=== PATIENT | male | born 1935 | race Caucasian/White ===

== ENCOUNTER 2022-07-17 05:55 | Day surgery (SDC) | payer MEDICARE, BC ==
[2022-07-13 14:39] VITALS: BMI 25.7
[2022-07-17] MEDS ORDERED: Indomethacin 50 MG SUPP ONE (07:30)
[2022-07-17] MEDS ORDERED: Iopamidol 30 ML ONE (07:31)
[2022-07-17] MEDS ORDERED: SUGAMMADEX SODIUM 200 MG/2 ML VIAL ONE (07:42)
[2022-07-17] MEDS ORDERED: fentaNYL PF 100 MCG/2 ML SYRINGE ONE (07:42)
[2022-07-17] MEDS ORDERED: PROPOFOL 200 MG/20 ML VIAL ONE (07:47)
[2022-07-17] MEDS ORDERED: Rocuronium Bromide 10 MG/ML (10ML VIAL) ONE (07:47)
[2022-07-17] MEDS ORDERED: Ondansetron PF 4 MG/2 ML Vial ONE (07:47)
[2022-07-17] MEDS ORDERED: Lidocaine 1% PF 5 ML VIAL ONE (07:47)
== END 2022-07-17 09:45 | disposition home or self-care (01) ==
LOC: SDC 05:55
PROVIDERS: ATTEND Internal Medicine Gastroenterology
PROC: 0FPB8DZ Removal of Intraluminal Device from Hepatobiliary Duct, Via Natural or Artificial Opening Endoscopic (ICD-10-PCS; principal; 2022-07-17)
DX: Z46.59 Encounter for fitting and adjustment of other gastrointestinal appliance and device (principal); I25.10 Atherosclerotic heart disease of native coronary artery without angina pectoris; K21.9 Gastro-esophageal reflux disease without esophagitis; K59.00 Constipation, unspecified; E78.5 Hyperlipidemia, unspecified; Z87.891 Personal history of nicotine dependence; Z79.82 Long term (current) use of aspirin; Z79.899 Other long term (current) drug therapy; Z88.1 Allergy status to other antibiotic agents; Z90.49 Acquired absence of other specified parts of digestive tract
CPT/HCPCS: 74330; J2405; J2704; Q9967